=== PATIENT | female | born 1950 | race Caucasian/White ===

== ENCOUNTER → 2016-10-22 | Outpatient (CLI) | payer OTHER, MEDICARE ==
[~2016-10-22] MED LIST: ASPI81TA28 PO; COEN1CAP46 PO; LEVO50TA PO; SIMV20TA5 PO
== END | disposition home or self-care (01) ==
LOC: C.LABPBG 13:56
PROVIDERS: ATTEND Internal Medicine
DX: K62.5 Hemorrhage of anus and rectum (principal)

== ENCOUNTER → 2017-01-09 | Outpatient (CLI) | payer OTHER, MEDICARE ==
[2017-01-09 13:04] LABS: ESTIMATED AVERAGE GLUCOSE 123 mg/dl; HA1C FLAG Normal (Normal)
[2017-01-09 13:09] LABS: BLOOD UREA NITROGEN 17 mg/dl (7-18); CARBON DIOXIDE 27 mmol/L (21-32); CHLORIDE 108 mmol/L (98-107); CREATININE 0.75 mg/dl (0.60-1.20); GLUCOSE 100 mg/dl (70-99); POTASSIUM 4.4 mmol/L (3.5-5.1); SODIUM 141 mmol/L (136-145)
[2017-01-09 13:45] LABS: CALCIUM 9.4 mg/dl (8.5-10.1)
--- NOTE | 2017-01-13 07:01 | CODING QUERY NO DIAGNOSIS ---
TREATMENT RENDERED WITHOUT A DIAGNOSIS To promote full compliance with coding requirements relating to patient care, physician participation is requested in all cases of parts technician uncertainty. Please assist us with providing a diagnosis/symptom for the test(s) below: A diagnosis/symptom was not documented on your Order. A valid diagnosis/symptom is required to bill all insurances. Please remember that we are unable to code a diagnosis of rule out, probable, possible, questionable, or suspected. DATE OF SERVICE: 01/09/17 Tests that require a diagnosis: * BASIC METABOLIC PROFILE DIAGNOSIS: * GLYCOHEMOGLOBIN A1C DIAGNOSIS: * HA1C RESULT DIAGNOSIS: * TSH DIAGNOSIS: Provider Signature: Date: Thank you Diana Jimenez [facility] Information Management Once completed, please kindly fax back to [phone] For questions please call [phone]
== END | disposition home or self-care (01) ==
LOC: C.LABPBG 09:56
PROVIDERS: ATTEND Internal Medicine
DX: I10 Essential (primary) hypertension (principal); E78.5 Hyperlipidemia, unspecified; R73.02 Impaired glucose tolerance (oral); R94.6 Abnormal results of thyroid function studies

== ENCOUNTER → 2017-04-17 | Outpatient (CLI) | payer OTHER, MEDICARE ==
[2017-04-17 11:49] LABS: HEMATOCRIT 42.8 % (37-47); MEAN CELL VOLUME 95.5 fL (80-100); MEAN CORPUSCULAR HEMOGLOBIN 32.4 pg (25-34); MEAN CORPUSCULAR HGB CONC 33.9 g/dl (32-36); MEAN PLATELET VOLUME 10.2 fL (7.4-10.4); PLATELET COUNT 204 K/uL (130-400); RED BLOOD COUNT 4.48 M/uL (4.2-5.4); WHITE BLOOD COUNT 7.74 K/uL (4.8-10.8)
[2017-04-17 12:01] LABS: BLOOD UREA NITROGEN 17 mg/dl (7-18); BUN/CREATININE RATIO 21.1 (10-20); CALCIUM 8.9 mg/dl (8.5-10.1); CARBON DIOXIDE 27 mmol/L (21-32); CHLORIDE 108 mmol/L (98-107); CHOLESTEROL 148 mg/dl (0-200); CREATININE 0.81 mg/dl (0.60-1.20); GLUCOSE 99 mg/dl (70-99); SODIUM 139 mmol/L (136-145)
[2017-04-17 12:11] LABS: CHOLESTEROL/HDL RATIO 3.9; HDL CHOLESTEROL 38 mg/dl; LDL CHOLESTEROL CALCULATED 69 mg/dl; TRIGLYCERIDES 207 mg/dl (0-150); VERY LOW DENSITY LIPOPROT CALC 41 mg/dl
[2017-04-17 12:46] LABS: ESTIMATED AVERAGE GLUCOSE 128 mg/dl; HA1C FLAG Normal (Normal)
== END | disposition home or self-care (01) ==
LOC: C.LABPBG 08:11
PROVIDERS: ATTEND Internal Medicine
DX: E78.5 Hyperlipidemia, unspecified (principal); I10 Essential (primary) hypertension; E03.9 Hypothyroidism, unspecified; R73.02 Impaired glucose tolerance (oral); I47.1 Supraventricular tachycardia

== ENCOUNTER → 2017-08-10 | Outpatient (CLI) | payer OTHER, MEDICARE ==
[2017-08-10 11:40] LABS: MEAN CELL VOLUME 96.4 fL (80-100); MEAN CORPUSCULAR HEMOGLOBIN 32.9 pg (25-34); MEAN CORPUSCULAR HGB CONC 34.1 g/dl (32-36); MEAN PLATELET VOLUME 9.5 fL (7.4-10.4); PLATELET COUNT 196 K/uL (130-400); RED BLOOD COUNT 4.77 M/uL (4.2-5.4)
[2017-08-10 11:51] LABS: BLOOD UREA NITROGEN 16 mg/dl (7-18); BUN/CREATININE RATIO 19.9 (10-20); CALCIUM 8.9 mg/dl (8.5-10.1); CARBON DIOXIDE 28 mmol/L (21-32); CHLORIDE 104 mmol/L (98-107); CREATININE 0.79 mg/dl (0.60-1.20); GLUCOSE,FASTING 104 mg/dl (70-99); POTASSIUM 4.2 mmol/L (3.5-5.1); SODIUM 136 mmol/L (136-145)
[2017-08-10 11:55] LABS: CHOLESTEROL 189 mg/dl (0-200); CHOLESTEROL/HDL RATIO 4.3; HDL CHOLESTEROL 44 mg/dl; LDL CHOLESTEROL CALCULATED 103 mg/dl; TRIGLYCERIDES 210 mg/dl (0-150); VERY LOW DENSITY LIPOPROT CALC 42 mg/dl
[2017-08-10 12:18] LABS: ESTIMATED AVERAGE GLUCOSE 123 mg/dl; HA1C FLAG Normal (Normal)
== END | disposition home or self-care (01) ==
LOC: C.LABPBG 09:13
PROVIDERS: ATTEND Internal Medicine
DX: E03.9 Hypothyroidism, unspecified (principal); E78.5 Hyperlipidemia, unspecified; R73.02 Impaired glucose tolerance (oral)

== ENCOUNTER → 2017-11-12 | Outpatient (CLI) | payer OTHER, MEDICARE ==
[2017-11-12 12:22] LABS: HEMATOCRIT 45.7 % (37-47); HEMOGLOBIN 15.7 g/dL (12.0-16.0); MEAN CELL VOLUME 95.4 fL (80-100); MEAN CORPUSCULAR HEMOGLOBIN 32.8 pg (25-34); MEAN CORPUSCULAR HGB CONC 34.4 g/dl (32-36); MEAN PLATELET VOLUME 9.8 fL (7.4-10.4); PLATELET COUNT 215 K/uL (130-400); RED CELL DISTRIBUTION WIDTH SD 45.2 fL (36.4-46.3); WHITE BLOOD COUNT 7.24 K/uL (4.8-10.8)
[2017-11-12 12:56] LABS: HEMOGLOBIN A1C 5.9 % (4.5-5.6)
[2017-11-12 13:03] LABS: BLOOD UREA NITROGEN 17 mg/dl (7-18); CALCIUM 9.3 mg/dl (8.5-10.1); CARBON DIOXIDE 28 mmol/L (21-32); CHOLESTEROL 189 mg/dl (0-200); CREATININE 0.81 mg/dl (0.60-1.20); GLUCOSE,FASTING 108 mg/dl (70-99); POTASSIUM 4.6 mmol/L (3.5-5.1); SODIUM 140 mmol/L (136-145)
[2017-11-12 13:07] LABS: LDL CHOLESTEROL CALCULATED 106 mg/dl
== END | disposition home or self-care (01) ==
LOC: C.LABPBG 09:18
PROVIDERS: ATTEND Internal Medicine
DX: E78.5 Hyperlipidemia, unspecified (principal); E03.9 Hypothyroidism, unspecified; I47.2 Ventricular tachycardia; I10 Essential (primary) hypertension; R73.02 Impaired glucose tolerance (oral)

== ENCOUNTER → 2018-04-09 | Outpatient (CLI) | payer OTHER, MEDICARE ==
[2018-04-09 12:21] LABS: HEMATOCRIT 44.3 % (37-47); MEAN CELL VOLUME 96.3 fL (80-100); MEAN CORPUSCULAR HEMOGLOBIN 32.6 pg (25-34); MEAN CORPUSCULAR HGB CONC 33.9 g/dl (32-36); MEAN PLATELET VOLUME 10.3 fL (7.4-10.4); PLATELET COUNT 205 K/uL (130-400); RED CELL DISTRIBUTION WIDTH CV 12.7 % (11.5-14.5); RED CELL DISTRIBUTION WIDTH SD 43.7 fL (36.4-46.3)
[2018-04-09 12:53] LABS: ALBUMIN 3.6 gm/dl (3.4-5.0); ALKALINE PHOSPHATASE 70 U/L (45-117); ALT/SGPT 27 U/L (12-78); AST/SGOT 18 U/L (15-37); BLOOD UREA NITROGEN 21 mg/dl (7-18); CALCIUM 8.7 mg/dl (8.5-10.1); CARBON DIOXIDE 27 mmol/L (21-32); CREATININE 0.78 mg/dl (0.60-1.20); GLUCOSE,FASTING 104 mg/dl (70-99); POTASSIUM 3.9 mmol/L (3.5-5.1); SODIUM 140 mmol/L (136-145); URIC ACID 7.3 mg/dl (2.6-7.2)
[2018-04-09 13:33] LABS: HEMOGLOBIN A1C 5.9 % (4.5-5.6)
== END | disposition home or self-care (01) ==
LOC: C.LABPBG 08:14
PROVIDERS: ATTEND Internal Medicine
DX: E78.5 Hyperlipidemia, unspecified (principal)